=== PATIENT | female | born 1975 | race Caucasian/White ===

== ENCOUNTER 2024-02-21 21:27 | Emergency (ER) | payer BC ==
--- NOTE | 2024-02-21 22:07 | ED ---
General Adult HPI - General Chief complaint: Neck Pain/Injury Stated complaint: neck pain Time Seen by Provider: 02/21/24 21:52 Source: patient Mode of arrival: ambulatory - History of Present Illness Initial comments: Dictation was produced using [employer] dictation software. please excuse any grammatical, word or spelling errors. Chief Complaint: 48-year-old female presents emergency department right-sided neck pain History of Present Illness: Patient 48-year-old female presents with right-sided neck pain. Patient denies any trauma. She bought a new pillow. She has had this new pillow for the last 2 weeks. She has not tried to change her pillow. Since changed her pillow she has been having right-sided neck pain. Pain seems to be reproduced with head rotation to the right and sometimes with forward bending. Denies any numbness tingling paresthesias to the arms. Patient having no difficulties ambulating. Patient has been trying to take Motrin to help her symptoms. The ROS documented in this emergency department record has been reviewed and confirmed by me. Those systems with pertinent positive or negative responses have been documented in the HPI. All other systems are other negative and/or noncontributory. - Related Data Home Medications Medication Instructions Recorded Confirmed Levothyroxine Sodium [Synthroid] 100 mcg PO DAILY 08/23/14 08/24/14 Previous Rx's Medication Instructions Recorded methocarbamoL [Robaxin] 1,000 mg PO TID PRN #24 tab 02/21/24 Allergies Allergy/AdvReac Type Severity Reaction Status Date / Time No Known Allergies Allergy Verified 02/21/24 21:48 Review of Systems ROS Statement: Those systems with pertinent positive or pertinent negative responses have been documented in the HPI. ROS Other: All systems not noted in ROS Statement are negative. Past Medical History Past Medical History: Thyroid Disorder Additional Past Medical History / Comment(s): RECTAL BLEEDING History of Any Multi-Drug Resistant Organisms: None Reported Past Surgical History: Section Additional Past Surgical History / Comment(s): COLONOSCOPY, D&C Past Anesthesia/Blood Transfusion Reactions: No Reported Reaction Past Psychological History: No Psychological Hx Reported Past Alcohol Use History: Occasional Past Drug Use History: None Reported General Exam - General Exam Comments Initial Comments: General: Well-appearing, nontoxic, no acute distress. Head: Normocephalic, atraumatic Eyes: PERRLA, EOMI ENT: Airway patent Neck: Palpatory tenderness to the right soft tissue of the neck over the mid sternocleidomastoid. Pain reproduced with resistance to neck rotation Chest: Nonlabored breathing Skin: No visual rash, normal skin tone Neuro: Alert and oriented 3 Musculoskeletal: No gross abnormalities Course Vital Signs 02/21/24 21:40 Temperature 98.2 F Pulse Rate 94 Respiratory 18 Rate Blood Pressure 176/116 O2 Sat by Pulse 99 Oximetry Medical Decision Making - Medical Decision Making Was pt. sent in by a medical professional or institution (, [facility], [employer] T[employer] OPERATOR, urgent care, hospital, or fdc...) When possible be specific @ -No Did you speak to anyone other than the patient for history (EMS, parent, family, police, friend...)? What history was obtained from this source @ -No Did you review nursing and triage notes (agree or disagree)? Why? @ -I reviewed and agree with nursing and triage notes Were old charts reviewed (outside hosp., previous admission, EMS record, old EKG, old radiological studies, urgent care reports/EKG's, fdc records)? Report findings @ -No old charts were reviewed Differential Diagnosis (chest pain, altered mental status, abdominal pain women, abdominal pain men, vaginal bleeding, musculoskeletal, weakness, fever, dyspnea, syncope, headache, dizziness, GI bleed, back pain, seizure, CVA, palpatations, mental health)? @ -Differential Musculoskeletal: Muscular strain, contusion, ligament sprain, fracture, arthritis, septic arthritis, bursitis, cellulitis, muscle spasm, nerve compression, DVT, arterial occlusion, herpes zoster, electrolyte abnormality, tumor.... This is not meant to be in all inclusive list EKG interpreted by me (3pts min.). @ -None done X-rays interpreted by me (1pt min.). @ -None done CT interpreted by me (1pt min.). @ -CT scan of the brain shows no acute processes U/S interpreted by me (1pt. min.). @ -None done What testing was considered but not performed or refused? (CT, X-rays, U/S, labs)? Why? @ -None What meds were considered but not given or refused? Why? @ -None Did you discuss the management of the patient with other professionals (professionals i.e. , PA, [employer] T[employer] OPERATOR, lab, RT, psych nurse, social worker psychiatric, show operations supervisor, teacher, privacy officer, case making machine operator)? Give summary @ -No Was smoking cessation discussed for >3mins.? @ -No Was critical care preformed (if so, how long)? @ -No Were there social determinants of health that impacted care today? How? (Homelessness, low income, unemployed, alcoholism, drug addiction, transportation, low edu. Level, literacy, decrease access to med. care, halfway, rehab)? @ -No Was there de-escalation of care discussed even if they declined (Discuss DNR or withdrawal of care, Hospice)? DNR status @ -No What co-morbidities impacted this encounter? (DM, HTN, Smoking, COPD, CAD, Cancer, CVA, ARF, Chemo, Hep., AIDS, mental health diagnosis, sleep apnea, morbid obesity)? @ -None Was patient admitted / discharged? Hospital course, mention meds given and route, prescriptions, significant lab abnormalities, going to OR and other pertinent info. @ -48-year-old female presents emergency department neck strain. Vital signs stable. Physical examination shows reproducible neck symptoms with neck movement. CT scan is negative. Patient reports improvement of Robaxin. Patient discharged advised follow-up with primary care doctor. Robaxin prescription provided Undiagnosed new problem with uncertain prognosis? @ -No Drug Therapy requiring intensive monitoring for toxicity (Heparin, Nitro, Insulin, Cardizem)? @ -No Were any procedures done? @ -No Diagnosis/symptom? Acute, or Chronic, or Acute on Chronic? Uncomplicated (without systemic symptoms) or Complicated (systemic symptoms)? @ -Neck strain Side effects of treatment? @ -No Exacerbation, Progression, or Severe Exacerbation? @ -No Poses a threat to life or bodily function? How? (Chest pain, [place], NH, pneumonia, PE, COPD, DKA, ARF, appy, cholecystitis, CVA, Diverticulitis, Homicidal, Suicidal, threat to staff... and all critical care pts) @ -No Disposition Clinical Impression: Strain of neck muscle Disposition: HOME SELF-CARE Condition: Good Instructions (If sedation given, give patient instructions): Cervical Strain (ED) Prescriptions: methocarbamoL [Robaxin] 1,000 mg PO TID PRN #24 tab PRN Reason: Pain Is patient prescribed a controlled substance at d/c from ED?: No Referrals: Citlaly Watters MD [Primary Care Provider] - 1-2 days Time of Disposition: 23:54
--- NOTE | 2024-02-21 22:25 | CT ---
EXAMINATION TYPE: CT cervical spine wo con DATE OF EXAM: 02/21/2024 COMPARISON: NONE HISTORY: neck pain/ stiffness x a couple weeks. no known injury. CT DLP: 381.6 mGycm. Automated Exposure Control for Dose Reduction was Utilized. TECHNIQUE: CT scan of the cervical spine is obtained without contrast, axial images are obtained, sa gittal and coronal reformatted images are also reviewed. FINDINGS: Cervical spine is visualized in its entirety from C1 through upper thoracic levels, demonst rates grade 1 retrolisthesis C5 on C6 and C6 on C7 without evidence of acute fracture or dislocation. Prevertebral soft tissue appears within normal limits. The C1-C2 articulation is within normal hanley its on the coronal images. Vertebral body heights are maintained. Moderate spurring and disc space na rrowing at C5-C6 and C6-C7 levels is seen. Axial images at these levels show spur disc complexes effa cing the anterior thecal sac and contributing to [id number] bilateral neural foraminal narrowin g at C6-C7 level Axial images show hypoplastic or small size thyroid gland. Lung apices are clear without pneumothorax . IMPRESSION: There is no acute findings are seen. MRI noted more sensitive to evaluate disc herniatio ns.
[2024-02-21] MEDS: methocarbamoL 500 MG TAB PO STA (22:52)
[2024-02-22 01:03] VITALS: BP 150/104; PULSE 83; RESP 17; TEMP 97.3
== END 2024-02-22 00:22 | disposition home or self-care (01) ==
LOC: EC 21:27
DX: S16.1XXA Strain of muscle, fascia and tendon at neck level, initial encounter (principal); X58.XXXA Exposure to other specified factors, initial encounter
CPT/HCPCS: 72125; 99283